=== PATIENT | female | born 1990 | race Caucasian/White ===

== ENCOUNTER 2017-10-24 00:27 | Inpatient (IN) | payer BC ==
[2017-10-24] MEDS ORDERED: Sodium Chloride 0.9% 10 ML Syringe FLUSH PRN (01:08)
[2017-10-24] MEDS ORDERED: Tranexamic Acid 1,000 MG in Sodium Chloride 0.9% 100 ML IV PRN (01:08)
[2017-10-24] MEDS ORDERED: Butorphanol 1 MG/ML SDV IVPUSH PRN (01:08)
[2017-10-24] MEDS ORDERED: Sodium Chloride 0.9% 2.5 ML Syringe FLUSH PRN (01:08)
[2017-10-24] MEDS ORDERED: Nalbuphine 10 MG/1 ML Vial IVPUSH PRN (01:08)
[2017-10-24] MEDS ORDERED: Carboprost Tromethamine 250 MCG/1 ML Amp IM PRN (01:08)
[2017-10-24] MEDS ORDERED: Water For Irrigation,Sterile 1,000 ML Container IRR PRN (01:08)
[2017-10-24] MEDS ORDERED: Methylergonovine 0.2 MG/1 ML Amp IM PRN ×2 (01:08→14:03)
[2017-10-24] MEDS ORDERED: Lidocaine 1% 50 ML MDV INJECT PRN (01:08)
[2017-10-24] MEDS ORDERED: Misoprostol 200 MCG Tab PO PRN (01:08)
[2017-10-24] MEDS ORDERED: Terbutaline 1 MG/ML SDV SUBCUT PRN (01:10)
[2017-10-24] MEDS ORDERED: Oxytocin/0.9 % Sodium Chloride 30 UNIT/500 ML BAG IV SCH (01:15)
[2017-10-24] MEDS: Lactated Ringers 1,000 ML IV SCH ×3 (01:32→11:07)
[2017-10-24] MEDS ORDERED: Ampicillin 2 GM in Sodium Chloride 0.9% 100 ML IV ONE (01:38)
[2017-10-24] MEDS: Ampicillin 1 GM in Sodium Chloride 0.9% 50 ML IV SCH ×2 (06:28→10:33)
[2017-10-24] MEDS ORDERED: fentaNYL 100 MCG/2 ML SDV ONE (07:46)
[2017-10-24] MEDS ORDERED: Nalbuphine 10 MG/ML 10 ML MDV IVPUSH PRN (08:15)
--- NOTE | 2017-10-24 10:10 | PCM.PREANE ---
Preanesthetic Assessment - Procedure Proposed Procedure: labor epidural - Anesthesia/Transfusion/Family Hx Anesthesia History: Prior Anesthesia Without Reaction Intubation History: Unknown - Review of Systems General: Other (pregnacy with active labor; no prior regional with childbirths) Pulmonary: Other (asthma hx) Cardiovascular: No Symptoms Gastrointestinal: Other (GERD) Neurological: No Symptoms Other: Reports: Anxiety - Physical Assessment NPO Status Date: 10/23/17 NPO Status Time: 23:00 Height: 6 ft Weight: 230 lb ASA Class: 2 Mental Status: Alert & Oriented x3 Airway Class: Mallampati = 1 Dentition: Reports: Normal Dentition Thyro-Mental Finger Breadths: 3 Mouth Opening Finger Breadths: 3 ROM/Head Extension: Full Lungs: Clear to Auscultation, Normal Respiratory Effort Cardiovascular: Regular Rate, Regular Rhythm, No Murmurs - Lab Values: Laboratory Last Values WBC 8.34 K/uL (4.0-11.0) 10/24/17 01:30 RBC 3.81 M/uL (4.30-5.90) L 10/24/17 01:30 Hgb 10.0 g/dL (12.0-16.0) L 10/24/17 01:30 Hct 31.6 % (36.0-46.0) L 10/24/17 01:30 MCV 82.9 fL (80.0-98.0) 10/24/17 01:30 MCH 26.2 pg (27.0-32.0) L 10/24/17 01:30 MCHC 31.6 g/dL (31.0-37.0) 10/24/17 01:30 RDW Std Deviation 45.7 fl (28.0-62.0) 10/24/17 01:30 RDW Coeff of Moy 15 % (11.0-15.0) 10/24/17 01:30 Plt Count 157 K/uL (150-400) 10/24/17 01:30 MPV 9.80 fL (7.40-12.00) 10/24/17 01:30 Nucleated RBC % 0.4 /100WBC 10/24/17 01:30 Nucleated RBCs # 0 K/uL 10/24/17 01:30 Blood Type A POSITIVE 10/24/17 01:30 Antibody Screen NEGATIVE 10/24/17 01:30 - Allergies Allergies/Adverse Reactions: Allergies Allergy/AdvReac Type Severity Reaction Status Date / Time aluminum aspirin Allergy Other Verified 10/18/14 09:16 - Blood Blood Available: No Product(s) Available: None - Acknowledgements Anesthesia Type Planned: Epidural Pt an Appropriate Candidate for the Planned Anesthesia: Yes Alternatives and Risks of Anesthesia Discussed w Pt/Guardian: Yes Pt/Guardian Understands and Agrees with Anesthesia Plan: Yes Additional Comments: present for interview, exam and epidural placement PreAnesthesia Questionnaire Respiratory History: Reports: Asthma 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: Psychiatric History: Reports: Anxiety - Past Surgical History HEENT Surgical History: Reports: Other (See Below) Other HEENT Surgeries/Procedures: wisdom teeth 2006 Respiratory Surgical History: Reports: None - SUBSTANCE USE Smoking Status *Q: Never Smoker Tobacco Use Within Last Twelve Months: No Second Hand Smoke Exposure: No Recreational Drug Use History: No - HOME MEDS Home Medications: Home Meds Citalopram [Citalopram HBr] 20 mg PO DAILY #30 tablet 10/19/14 [Rx] - CURRENT (IN HOUSE) MEDS Current Meds: Current Medications Butorphanol Tartrate (Stadol) 1 mg IVPUSH Q1H PRN PRN Reason: Pain Carboprost Tromethamine (Hemabate Ds) 250 mcg IM ASDIRECTED PRN PRN Reason: Post Hemorrhage Lactated Ringer's (Ringers, Lactated) 1,000 mls @ 150 mls/hr IV ASDIRECTED [facility] Last Admin: 10/24/17 08:21 Dose: 150 mls/hr Tranexamic Acid 1,000 mg/ (Sodium Chloride) 110 mls @ 660 mls/hr IV ONETIME PRN PRN Reason: Bleeding Oxytocin/Sodium Chloride (Oxytocin 30 Unit/500 Ml-Ns) 30 unit in 500 mls @ 2 mls/hr IV TITRATE [facility]; Protocol Last Titration: 10/24/17 09:23 Dose: 12 munits/min, 12 mls/hr Ampicillin Sodium 1 gm/ Sodium (Chloride) 50 mls @ 100 mls/hr IV Q4H [facility] Last Admin: 10/24/17 06:28 Dose: 100 mls/hr Lidocaine HCl (Xylocaine 1%) 50 ml INJECT .ONCE PRN PRN Reason: Laceration repair Methylergonovine Maleate (Methergine) 0.2 mg IM ASDIRECTED PRN PRN Reason: Post Hemorrhage Misoprostol (Cytotec) 200 mcg PO .ONCE PRN PRN Reason: Post Hemorrhage Nalbuphine HCl (Nubain) 10 mg IVPUSH Q1H PRN PRN Reason: Pain (severe 7-10) Sodium Chloride (Saline Flush) 10 ml FLUSH ASDIRECTED PRN PRN Reason: Keep Vein Open Sodium Chloride (Saline Flush) 2.5 ml FLUSH ASDIRECTED PRN PRN Reason: Keep Vein Open Sterile Water (Sterile Water For Irrigation) 1,000 ml IRR ASDIRECTED PRN PRN Reason: delivery Terbutaline Sulfate (Brethine) 0.25 mg SUBCUT ASDIRECTED PRN PRN Reason: Tacysystole Discontinued Medications Fentanyl (Sublimaze) Confirm Administered Dose 100 mcg .ROUTE .STK-MED ONE Stop: 10/24/17 07:47 Ampicillin Sodium 2 gm/ Sodium (Chloride) 100 mls @ 200 mls/hr IV ONETIME ONE Stop: 10/24/17 02:07 Last Admin: 10/24/17 01:52 Dose: 200 mls/hr Fentanyl/Bupivacaine HCl (Eualvuqa-Nbxva-Xl 2 Mcg/Ml-0.125%) Confirm Administered Dose 100 mls @ as directed EP .STK-MED ONE Stop: 10/24/17 07:48 Nalbuphine HCl (Nubain) 10 mg IVPUSH Q1H PRN PRN Reason: Pain (severe 7-10)
[2017-10-24] MEDS ORDERED: Lanolin 100% Cream 7 GM Tube TOP PRN (14:03)
[2017-10-24] MEDS ORDERED: Ibuprofen 800 MG Tab PO PRN (14:03)
[2017-10-24] MEDS ORDERED: Witch Hazel Medicated Pads 40/Jar TOP PRN (14:03)
[2017-10-24] MEDS ORDERED: Docusate Sodium 100 MG Cap PO PRN (14:03)
[2017-10-24] MEDS ORDERED: Acetaminophen 500 MG Tab PO PRN ×2 (14:03)
[2017-10-24] MEDS ORDERED: Benzocaine/Menthol 20%-0.5% Spray 78 GM Cannister TOP PRN (14:03)
[2017-10-24] MEDS ORDERED: Bisacodyl 10 MG Supp RECTAL PRN (14:03)
[2017-10-24] MEDS ORDERED: Ibuprofen 400 MG Tab PO PRN (14:03)
[2017-10-24] MEDS ORDERED: oxyCODONE 5 MG Tab PO PRN (14:03)
[2017-10-24] MEDS ORDERED: Oxytocin/0.9 % Sodium Chloride 30 UNIT/500 ML BAG ONE (14:05)
[2017-10-24] MEDS ORDERED: ceFAZolin 2 GM in Premix Bag 1 BAG IV SCH (14:15)
--- NOTE | 2017-10-24 15:05 | OR ---
SURGEON: Darcy Barrios M.D. DATE OF PROCEDURE: PREOPERATIVE DIAGNOSES: 1. A 39 and 1/7 week intrauterine . 2. Polyhydramnios. 3. Suspected macrosomia. 4. Group B strep positive. POSTOPERATIVE DIAGNOSES: 1. A 39 and 1/7 week intrauterine . 2. Polyhydramnios. 3. Suspected macrosomia. 4. Group B strep positive. 5. Retained placenta. 6. Hydrocele of . PROCEDURE: Pitocin induction of labor, term spontaneous vaginal delivery. ANESTHESIA: Epidural. ESTIMATED BLOOD LOSS: Less than 300 mL. FINDINGS: Live-born male, scores 9 and 9, weighing 4240 g. Placenta was delivered Dahl with retained membranes, 3 vessel cord. The had a right hydrocele, left testis was descended. COMPLICATIONS: None known. DISPOSITION: Stable to recovery. BRIEF HISTORY: This is a 27-year-old female she is G4, P3. She has been diagnosed with polyhydramnios and macrosomia based on ultrasound findings. She was offered delivery versus induction of labor without any vaginal assistance with vacuum or forceps. Understanding the risks of shoulder dystocia, she does desire to proceed with induction of labor. She presented to labor and delivery 4-5 cm dilated, 80% effaced, -4 station. Pitocin was initiated. She received 2 doses of ampicillin for group B strep prophylaxis. At this time, she was 5 cm dilated. The head was well applied to the cervix, still -3 station. Artificial rupture of membranes was performed, clear fluid was noted. She then received an epidural for pain control. She continued to have category 1 heart tones throughout labor. When she was approximately 8 cm dilated, she was still at a -3 station. I did have her try to do a Valsalva maneuver. With several contractions, the head did descend into the pelvis, therefore an IUPC was placed. Pitocin was continued and over the next 45 minutes, she did progress to complete. DESCRIPTION OF PROCEDURE: With the patient in dorsal lithotomy position, under adequate epidural analgesia, the patient pushed over 1 contraction to a 5+ station, at which time, Brendan maneuver was performed as well as suprapubic pressure and the patient was placed in the supine position. With this, the anterior and posterior shoulders were delivered without any difficulty with subsequent delivery of the infant's body. The infant was bulb suctioned by nose and mouth. The cord was clamped x2 and cut after it ceased to pulsate and the was handed to the mother in the presence of the nurse attending delivery. The was a liveborn male, scores 9 and 9, weighing 4240 g with a finding of a right hydrocele. Cord blood was collected for cord ABGs as well as routine cord blood sampling. As this process was occurring, there was a large amount of bleeding noted, therefore fundal massage was performed and the vaginal hand was used to palpate the placenta, which was in the vagina in a Dahl presentation. Continued fundal massage was performed with delivery of the placenta with trailing membranes. The membranes were twisted with continued fundal massage to assist with delivery of the membranes; however, they did not deliver intact. Therefore, manual curettage was performed removing the remainder of the membranes. Once this was completed, there was minimal bleeding. The uterus was firm. The placenta and membrane fragments were then sent to Pathology. Upon inspection of the pelvis and perineum, there were no periurethral, vaginal sidewall, cervical, rectal, or perineal lacerations. EBL was less than 300 mL. There were no known complications. Mother and baby are in LDRP in good condition and Dr. Queen has evaluated the hydrocele. The patient will be continued on Ancef for 24 hours due to the manual extraction of the placental membranes. MELIZA FORDE /[id number]
--- NOTE | 2017-10-24 17:33 | PCM.PNPP ---
- General Info Date of Service: 10/24/17 Admission Dx/Problem (Free Text): day 0, baby is being transferred to [place] for repair of bilateral congenital hernias, she would like to be discharged today, lochia is small, she is afebrile, denies pain. Functional Status: Reports: Pain Controlled, Tolerating Diet. Denies: Ambulating (left leg is still ), Urinating - Review of Systems General: Reports: No Symptoms HEENT: Reports: No Symptoms Pulmonary: Reports: No Symptoms Cardiovascular: Reports: No Symptoms Gastrointestinal: Reports: No Symptoms Genitourinary: Reports: No Symptoms Musculoskeletal: Reports: No Symptoms Skin: Reports: No Symptoms Neurological: Reports: No Symptoms Psychiatric: Reports: No Symptoms - Patient Data Weight - Most Recent: 104.326 kg Lab Results - Last 24 Hours: Laboratory Results - last 24 hr 10/24/17 10/24/17 Range/Units 01:30 01:30 WBC 8.34 (4.0-11.0) K/uL RBC 3.81 L (4.30-5.90) M/uL Hgb 10.0 L (12.0-16.0) g/dL Hct 31.6 L (36.0-46.0) % MCV 82.9 (80.0-98.0) fL MCH 26.2 L (27.0-32.0) pg MCHC 31.6 (31.0-37.0) g/dL RDW Std Deviation 45.7 (28.0-62.0) fl RDW Coeff of Moy 15 (11.0-15.0) % Plt Count 157 (150-400) K/uL MPV 9.80 (7.40-12.00) fL Nucleated RBC % 0.4 /100WBC Nucleated RBCs # 0 K/uL Blood Type A POSITIVE Antibody Screen NEGATIVE Med Orders - Current: Current Medications Acetaminophen (Tylenol Extra Strength) 500 mg PO Q4H PRN PRN Reason: Pain Acetaminophen (Tylenol Extra Strength) 1,000 mg PO Q4H PRN PRN Reason: Pain Benzocaine/Menthol (Dermoplast Pain Relief 20%-0.5% Lovely) 78 gm TOP ASDIRECTED PRN PRN Reason: Perineal Comfort Measure Last Admin: 10/24/17 16:01 Dose: 1 applic Bisacodyl (Dulcolax) 10 mg RECTAL .ONCE PRN PRN Reason: Constipation Docusate Sodium (Colace) 100 mg PO BID PRN PRN Reason: Constipation Emollient Ointment (Lansinoh Hpa) 0 gm TOP ASDIRECTED PRN PRN Reason: Sore Nipples Last Admin: 10/24/17 16:01 Dose: 1 applic Cefazolin Sodium/Dextrose 2 gm (/ Premix) 50 mls @ 100 mls/hr IV Q8H [facility] Stop: 10/25/17 14:44 Last Admin: 10/24/17 14:56 Dose: 100 mls/hr Ibuprofen (Motrin) 400 mg PO Q4H PRN PRN Reason: Pain Ibuprofen (Motrin) 800 mg PO Q6H PRN PRN Reason: Pain Last Admin: 10/24/17 16:02 Dose: 800 mg Methylergonovine Maleate (Methergine) 0.2 mg IM .ONCE PRN PRN Reason: Excessive Vaginal Bleeding Oxycodone HCl (Oxycodone) 5 mg PO Q2H PRN PRN Reason: Pain Witch Evon (Tucks) 1 pad TOP ASDIRECTED PRN PRN Reason: comfort care Discontinued Medications Butorphanol Tartrate (Stadol) 1 mg IVPUSH Q1H PRN PRN Reason: Pain Carboprost Tromethamine (Hemabate Ds) 250 mcg IM ASDIRECTED PRN PRN Reason: Post Hemorrhage Fentanyl (Sublimaze) Confirm Administered Dose 100 mcg .ROUTE .STK-MED ONE Stop: 10/24/17 07:47 Lactated Ringer's (Ringers, Lactated) 1,000 mls @ 150 mls/hr IV ASDIRECTED [facility] Last Admin: 10/24/17 11:07 Dose: 150 mls/hr Tranexamic Acid 1,000 mg/ (Sodium Chloride) 110 mls @ 660 mls/hr IV ONETIME PRN PRN Reason: Bleeding Oxytocin/Sodium Chloride (Oxytocin 30 Unit/500 Ml-Ns) 30 unit in 500 mls @ 2 mls/hr IV TITRATE [facility]; Protocol Last Titration: 10/24/17 12:47 Dose: 20 munits/min, 20 mls/hr Ampicillin Sodium 2 gm/ Sodium (Chloride) 100 mls @ 200 mls/hr IV ONETIME ONE Stop: 10/24/17 02:07 Last Admin: 10/24/17 01:52 Dose: 200 mls/hr Ampicillin Sodium 1 gm/ Sodium (Chloride) 50 mls @ 100 mls/hr IV Q4H [facility] Last Admin: 10/24/17 10:33 Dose: 100 mls/hr Fentanyl/Bupivacaine HCl (Rqlnkggt-Tymgz-Rl 2 Mcg/Ml-0.125%) Confirm Administered Dose 100 mls @ as directed EP .STK-MED ONE Stop: 10/24/17 07:48 Oxytocin/Sodium Chloride (Oxytocin 30 Unit/500 Ml-Ns) Confirm Administered Dose 30 unit in 500 mls @ as directed .ROUTE .STK-MED ONE Stop: 10/24/17 14:06 Last Admin: 10/24/17 14:13 Dose: Not Given Lidocaine HCl (Xylocaine 1%) 50 ml INJECT .ONCE PRN PRN Reason: Laceration repair Methylergonovine Maleate (Methergine) 0.2 mg IM ASDIRECTED PRN PRN Reason: Post Hemorrhage Misoprostol (Cytotec) 200 mcg PO .ONCE PRN PRN Reason: Post Hemorrhage Nalbuphine HCl (Nubain) 10 mg IVPUSH Q1H PRN PRN Reason: Pain (severe 7-10) Nalbuphine HCl (Nubain) 10 mg IVPUSH Q1H PRN PRN Reason: Pain (severe 7-10) Sodium Chloride (Saline Flush) 10 ml FLUSH ASDIRECTED PRN PRN Reason: Keep Vein Open Sodium Chloride (Saline Flush) 2.5 ml FLUSH ASDIRECTED PRN PRN Reason: Keep Vein Open Sterile Water (Sterile Water For Irrigation) 1,000 ml IRR ASDIRECTED PRN PRN Reason: delivery Last Admin: 10/24/17 14:16 Dose: 1,000 ml Terbutaline Sulfate (Brethine) 0.25 mg SUBCUT ASDIRECTED PRN PRN Reason: Tacysystole - Interaction Disposition, : [place] in Room with Family Feeding: Breastfed Infant; Nursed Well (now cannot breastfeed as baby is NPO) Support Person: - Recovery Exam Fundal Tone: Firm Fundal Level: 1 Fingerbreadths Below Umbilicus Fundal Placement: Midline Lochia Amount: Moderate Lochia Color: Rubra/Red Episiotomy/Laceration: None Bladder Status: Palpable - Exam General: Alert, Oriented HEENT: Pupils Equal Neck: Supple Lungs: Normal Respiratory Effort Cardiovascular: Regular Rhythm GI/Abdominal Exam: Soft, Non-Tender, No Organomegaly, No Distention, No Mass Extremities: No Pedal Edema Skin: Warm, Dry, Intact Neurological: No New Focal Deficit Psy/Mental Status: Alert, Normal Affect, Normal Mood - Problem List Review Problem List Initiated/Reviewed/Updated: Yes - My Orders Last 24 Hours: My Active Orders 10/24/17 14:03 Acetaminophen [Tylenol Extra Strength] 1,000 mg PO Q4H PRN Acetaminophen [Tylenol Extra Strength] 500 mg PO Q4H PRN Benzocaine/Menthol [Dermoplast Pain Relief 20%-0.5% Lovely] 78 gm TOP ASDIRECTED PRN Bisacodyl [Dulcolax] 10 mg RECTAL .ONCE PRN Docusate Sodium [Colace] 100 mg PO BID PRN Ibuprofen [Motrin] 400 mg PO Q4H PRN Ibuprofen [Motrin] 800 mg PO Q6H PRN Lanolin [Lansinoh HPA] See Dose Instructions TOP ASDIRECTED PRN Methylergonovine [Methergine] 0.2 mg IM .ONCE PRN Witch Evon [Tucks] 1 pad TOP ASDIRECTED PRN oxyCODONE 5 mg PO Q2H PRN Resuscitation Status Routine 10/24/17 14:04 Patient Status [ADT] Routine May Shower [RC] ASDIRECTED Up ad Damaris [RC] ASDIRECTED Vital Signs [RC] PER UNIT ROUTINE Assess Lochia [WOMSER] Per Unit Routine Assess Uterine Involution [WOMSER] Per Unit Routine Perineal Care [OM.PC] Per Unit Routine Peripheral IV Discontinue [OM.PC] Routine 10/24/17 14:15 ceFAZolin [Ancef] 2 gm Premix Bag 1 bag IV Q8H 10/24/17 Lunch Regular Diet [DIET] 10/25/17 05:11 HEMOGLOBIN/HEMATOCRIT,HH [HEME] Timed - Assessment Assessment:: PPD 0 after of baby with bilateral congenital hernias, baby is being transferred for possible pediatric surgeon. She has breastfed once. She would like to be discharged today. She has not yet voided and left leg is still a little weak from the epidural. She has minimal pain, moderate lochia - Plan Plan:: After patient is able to void, and confirm that strength is back from epidural, she may be discharged. She will continue on oral antibiotics, due to manual removal of placental membranes. She will continue on prenatals while , discharge precautions and travel precautions reviewed.
--- NOTE | 2017-10-24 21:38 | PCM48HPAN ---
Post Anesthesia Note - EVALUATION WITHIN 48HRS OF ANESTHETIC Vital Signs in Normal Range: Yes Patient Participated in Evaluation: Yes Respiratory Function Stable: Yes Airway Patent: Yes Cardiovascular Function Stable: Yes Hydration Status Stable: Yes Pain Control Satisfactory: Yes Nausea and Vomiting Control Satisfactory: Yes Mental Status Recovered: Yes - COMMENTS/OBSERVATIONS Free Text/Narrative:: Evaluation is based upon obstetrition note and nurses report. Epidural catheter was removed intact after delivery. Patient was discharged to be with baby who [facility] congenital her[facility](s).
== END 2017-10-24 18:50 | disposition home or self-care (01) | DRG 560 ==
LOC: MW.OBCHECK 00:27 → MW.OB 00:28 → MW.OBCHECK 01:08 → OBSVTOIN 13:24
PROVIDERS: ADMIT Obstetrics & Gynecology; ATTEND Obstetrics & Gynecology
PROC: 10E0XZZ Delivery of Products of Conception, External Approach (ICD-10-PCS; principal; 2017-10-24)
PROC: 3E033VJ Introduction of Other Hormone into Peripheral Vein, Percutaneous Approach (ICD-10-PCS; 2017-10-24)
PROC: 10907ZC Drainage of Amniotic Fluid, Therapeutic from Products of Conception, Via Natural or Artificial Opening (ICD-10-PCS; 2017-10-24)
DX: O40.3XX0 Polyhydramnios, third trimester, not applicable or unspecified (principal); Z3A.39 39 weeks gestation of pregnancy; Z37.0 Single live birth; O36.63X0 Maternal care for excessive fetal growth, third trimester, not applicable or unspecified; O99.824 Streptococcus B carrier state complicating childbirth; O73.0 Retained placenta without hemorrhage
CPT/HCPCS: 36415; 51702; 59025; 59409; 82803; 85027; 86850; 86900; 86901; A9270-GY; J0290; J0690; J2590; J7030; J7050; J7120

== ENCOUNTER 2018-11-27 18:15 | Emergency (ER) | payer BC ==
--- NOTE | 2018-11-27 18:45 | EDM.PDOC ---
ED HPI GENERAL MEDICAL PROBLEM - General Chief Complaint: Headache Stated Complaint: HEADACHE Time Seen by Provider: 11/27/18 18:15 Source of Information: Reports: Patient History Limitations: Reports: No Limitations - History of Present Illness INITIAL COMMENTS - FREE TEXT/NARRATIVE: HISTORY AND PHYSICAL: History of present illness: Patient is a 28-year-old female who presents today with a headache that began at noon today. Patient describes the headache like a band around her head. She took ibuprofen with mild relief. This afternoon she started getting a sore throat, and generalized body aches. Patient denies any injury or recent illnesses. Patient states she is concerned as she does not have a history of headaches. Patient denies any other symptoms or concerns at this time. Patient denies any health history. Patient denies fever, chest pain, shortness of breath, or cough. Denies headache , neck stiff ness, change in vision, syncope, or near syncope. Denies nausea, vomiting, abdominal pain, diarrhea, constipation, or dysuria. Has not noted any blood in urine or stool. Patient has been eating and drinking appropriately. Review of systems: As per history of present illness and below otherwise all systems reviewed and negative. Past medical history: As per history of present illness and as reviewed below otherwise noncontributory. Surgical history: As per history of present illness and as reviewed below otherwise noncontributory. Social history: See social history for further information Family history: As per history of present illness and as reviewed below otherwise noncontributory. Physical exam: General: Patient is alert, oriented, and in no acute distress. Patient laying comfortably on exam table. HEENT: Atraumatic, normocephalic, pupils equal and reactive bilaterally, negative for conjunctival pallor or scleral icterus, mucous membranes moist, TMs normal bilaterally, throat is moderately erythematous without exudate, neck supple, nontender, trachea midline. No drooling or trismus noted. No meningeal signs. No hot potato voice noted. Lungs: Clear to auscultation, breath sounds equal bilaterally, chest nontender. Heart: S1S2, regular rate and rhythm without overt murmur Abdomen: Soft, nondistended, nontender. Negative for masses or hepatosplenomegaly. Negative for costovertebral tenderness. Pelvis: Stable nontender. Genitourinary: Deferred. Rectal: Deferred. Skin: Intact, warm, dry. No lesions or rashes noted. Extremities: Atraumatic, negative for cords or calf pain. Neurovascular unremarkable. Negative Kernig and Brudzinski sign. Neuro: Awake, alert, oriented. Cranial nerves II through XII unremarkable. Cerebellum unremarkable. Motor and sensory unremarkable throughout. Exam nonfocal. Notes: Discussed the importance of following up with PCP. Voices understanding and is agreeable to plan of care. Denies any further questions or concerns at this time. Diagnostics: Strep, mono, CBC, CMP, UA, head CT, urine hCG, CPK, influenza Therapeutics: None Prescription: Amoxicillin Impression: Strep pharyngitis Plan: 1. Take medication as prescribed. Continue to alternate ibuprofen and Tylenol as directed for pain and discomfort. 2. Follow-up with your primary care provider as discussed. Return to the ED as needed and as discussed. Definitive disposition and diagnosis as appropriate pending reevaluation and review of above. headache Pain Score (Numeric/FACES): 7 - Related Data Allergies Allergy/AdvReac Type Severity Reaction Status Date / Time aluminum aspirin Allergy Other Verified 11/27/18 18:20 Home Meds: Home Meds Citalopram [Citalopram HBr] 20 mg PO DAILY #30 tablet 10/19/14 [Rx] Past Medical History HEENT History: Reports: None Cardiovascular History: Reports: None Respiratory History: Reports: None Gastrointestinal History: Reports: None Genitourinary History: Reports: None [employer] History: Reports: Musculoskeletal History: Reports: None Neurological History: Reports: None Psychiatric History: Reports: Anxiety Endocrine/Metabolic History: Reports: None Hematologic History: Reports: None Immunologic History: Reports: None Oncologic (Cancer) History: Reports: None Dermatologic History: Reports: None - Infectious Disease History Infectious Disease History: Reports: None - Past Surgical History Head Surgeries/Procedures: Reports: None HEENT Surgical History: Reports: Oral Surgery, Other (See Below) Other HEENT Surgeries/Procedures: wisdom teeth 2006 Respiratory Surgical History: Reports: None Female Surgical History: Reports: None Musculoskeletal Surgical History: Reports: None Social & Family History - Family History Family Medical History: Noncontributory Endocrine/Metabolic: Reports: Hypothyroidism - Tobacco Use Smoking Status *Q: Never Smoker - Caffeine Use Caffeine Use: Reports: Soda - Recreational Drug Use Recreational Drug Use: No ED ROS GENERAL - Review of Systems Review Of Systems: ROS reveals no pertinent complaints other than HPI. ED EXAM, GENERAL - Physical Exam Exam: See Below (See dictation) Course - Vital Signs Last Recorded V/S: Last Vital Signs Temp 36.1 C 11/27/18 18:20 Pulse 82 11/27/18 18:20 Resp 18 11/27/18 18:20 BP 124/75 11/27/18 18:20 Pulse Ox 98 11/27/18 18:20 - Orders/Labs/Meds Labs: Laboratory Tests 11/27/18 11/27/18 11/27/18 Range/Units 18:48 18:48 18:59 WBC 12.12 H (4.0-11.0) K/uL RBC 4.48 (4.30-5.90) M/uL Hgb 13.5 (12.0-16.0) g/dL Hct 41.6 (36.0-46.0) % MCV 92.9 (80.0-98.0) fL MCH 30.1 (27.0-32.0) pg MCHC 32.5 (31.0-37.0) g/dL RDW Std Deviation 43.6 (28.0-62.0) fl RDW Coeff of Moy 13 (11.0-15.0) % Plt Count 169 (150-400) K/uL MPV 10.50 (7.40-12.00) fL Neut % (Auto) 84.1 H (48.0-80.0) % Lymph % (Auto) 9.1 L (16.0-40.0) % [place] % (Auto) 6.4 (0.0-15.0) % Eos % (Auto) 0.2 (0.0-7.0) % Baso % (Auto) 0.2 (0.0-1.5) % Neut # (Auto) 10.2 H (1.4-5.7) K/uL Lymph # (Auto) 1.1 (0.6-2.4) K/uL [place] # (Auto) 0.8 (0.0-0.8) K/uL Eos # (Auto) 0.0 (0.0-0.7) K/uL Baso # (Auto) 0.0 (0.0-0.1) K/uL Nucleated RBC % 0.0 /100WBC Nucleated RBCs # 0 K/uL Sodium (136-145) mmol/L Potassium (3.5-5.1) mmol/L Chloride (98-107) mmol/L Carbon Dioxide (21.0-32.0) mmol/L BUN (7.0-18.0) mg/dL Creatinine (0.6-1.0) mg/dL Est Cr Clr Drug Dosing mL/min Estimated GFR (MDRD) ml/min Glucose (74-106) mg/dL Calcium (8.5-10.1) mg/dL Total Bilirubin (0.2-1.0) mg/dL AST (15-37) IU/L ALT (14-63) IU/L Alkaline Phosphatase (46-116) U/L Creatine Kinase (26-308) U/L Total Protein (6.4-8.2) g/dL Albumin (3.4-5.0) g/dL Globulin (2.6-4.0) g/dL Albumin/Globulin Ratio (0.9-1.6) Urine Color YELLOW Urine Appearance CLEAR Urine pH 7.0 (5.0-8.0) Ur Specific [place] 1.020 (1.001-1.035) Urine Protein NEGATIVE (NEGATIVE) mg/dL Urine Glucose (UA) NEGATIVE (NEGATIVE) mg/dL Urine Ketones NEGATIVE (NEGATIVE) mg/dL Urine Occult Blood NEGATIVE (NEGATIVE) Urine Nitrite NEGATIVE (NEGATIVE) Urine Bilirubin NEGATIVE (NEGATIVE) Urine Urobilinogen 1.0 (<2.0) EU/dL Ur Leukocyte Esterase NEGATIVE (NEGATIVE) Urine HCG, Qual NEGATIVE (NEGATIVE) Monoscreen (NEG) 11/27/18 11/27/18 Range/Units 18:59 18:59 WBC (4.0-11.0) K/uL RBC (4.30-5.90) M/uL Hgb (12.0-16.0) g/dL Hct (36.0-46.0) % MCV (80.0-98.0) fL MCH (27.0-32.0) pg MCHC (31.0-37.0) g/dL RDW Std Deviation (28.0-62.0) fl RDW Coeff of Moy (11.0-15.0) % Plt Count (150-400) K/uL MPV (7.40-12.00) fL Neut % (Auto) (48.0-80.0) % Lymph % (Auto) (16.0-40.0) % [place] % (Auto) (0.0-15.0) % Eos % (Auto) (0.0-7.0) % Baso % (Auto) (0.0-1.5) % Neut # (Auto) (1.4-5.7) K/uL Lymph # (Auto) (0.6-2.4) K/uL [place] # (Auto) (0.0-0.8) K/uL Eos # (Auto) (0.0-0.7) K/uL Baso # (Auto) (0.0-0.1) K/uL Nucleated RBC % /100WBC Nucleated RBCs # K/uL Sodium 133 L (136-145) mmol/L Potassium 3.7 (3.5-5.1) mmol/L Chloride 100 (98-107) mmol/L Carbon Dioxide 28.1 (21.0-32.0) mmol/L BUN 17 (7.0-18.0) mg/dL Creatinine 0.9 (0.6-1.0) mg/dL Est Cr Clr Drug Dosing 106.43 mL/min Estimated GFR (MDRD) > 60.0 ml/min Glucose 105 (74-106) mg/dL Calcium 8.5 (8.5-10.1) mg/dL Total Bilirubin 0.2 (0.2-1.0) mg/dL AST 16 (15-37) IU/L ALT 17 (14-63) IU/L Alkaline Phosphatase 66 (46-116) U/L Creatine Kinase 144 (26-308) U/L Total Protein 7.8 (6.4-8.2) g/dL Albumin 3.8 (3.4-5.0) g/dL Globulin 4.0 (2.6-4.0) g/dL Albumin/Globulin Ratio 0.9 (0.9-1.6) Urine Color Urine Appearance Urine pH (5.0-8.0) Ur Specific [place] (1.001-1.035) Urine Protein (NEGATIVE) mg/dL Urine Glucose (UA) (NEGATIVE) mg/dL Urine Ketones (NEGATIVE) mg/dL Urine Occult Blood (NEGATIVE) Urine Nitrite (NEGATIVE) Urine Bilirubin (NEGATIVE) Urine Urobilinogen (<2.0) EU/dL Ur Leukocyte Esterase (NEGATIVE) Urine HCG, Qual (NEGATIVE) Monoscreen NEGATIVE (NEG) Departure - Departure Time of Disposition: 20:16 Disposition: Home, Self-Care 01 Clinical Impression: Strep pharyngitis - Discharge Information Referrals: Mirella Gomez MD [Primary Care Provider] - Forms: ED Department Discharge Additional Instructions: The following information is given to patients seen in the emergency department who are being discharged to home. This information is to outline your options for follow-up care. We provide all patients seen in our emergency department with a follow-up referral. The need for follow-up, as well as the timing and circumstances, are variable depending upon the specifics of your emergency department visit. If you don't have a primary care physician on staff, we will provide you with a referral. We always advise you to contact your personal physician following an emergency department visit to inform them of the circumstance of the visit and for follow-up with them and/or the need for any referrals to a consulting specialist. The emergency department will also refer you to a specialist when appropriate. This referral assures that you have the opportunity for follow-up care with a specialist. All of these measure are taken in an effort to provide you with optimal care, which includes your follow-up. Under all circumstances we always encourage you to contact your private physician who remains a resource for coordinating your care. When calling for follow-up care, please make the office aware that this follow-up is from your recent emergency room visit. If for any reason you are refused follow-up, please contact the [facility] Emergency Department at and asked to speak to the emergency department charge nurse. [facility] [address] [place] [id number] [facility] [address] [place] [id number] 1. Take medication as prescribed. Continue to alternate ibuprofen and Tylenol as directed for pain and discomfort. 2. Follow-up with your primary care provider as discussed. Return to the ED as needed and as discussed.
[2018-11-27 19:28] LABS: CHLORIDE,CL 100 mmol/L (98-107); SODIUM,NA 133 mmol/L (136-145)
--- NOTE | 2018-11-27 20:05 | CT ---
INDICATION: Headache; neck pain; shoulder and neck stiffness . Comparison: None. Technique: CT head without intravenous contrast; coronal and sagittal reformats. FINDINGS: No evidence of intracranial hemorrhage. No mass lesions. No evidence of shift of the midline structures. The calvarium is unremarkable. The ventricular system, the subarachnoid cisterns and the cerebral sulci are unremarkable. IMPRESSION: Negative unenhanced head CT. Please note that all CT scans at this facility use dose modulation, iterative reconstruction, and/or weight-based dosing when appropriate to reduce radiation dose to as low as reasonably achievable. Dictated by Zoey Aj MD @ Nov 27 2018 8:01PM Signed by Dr. Zoey Aj @ Nov 27 2018 8:04PM
[2018-11-27 20:17] VITALS: BP 122/68
== END 2018-11-27 18:28 | disposition home or self-care (01) ==
LOC: MW.ED 18:15
DX: J02.0 Streptococcal pharyngitis (principal); F41.9 Anxiety disorder, unspecified; Z79.899 Other long term (current) drug therapy; Z98.890 Other specified postprocedural states
CPT/HCPCS: 36415; 70450; 70450-26; 80053; 81003; 81025; 82550; 85025; 86308; 87804; 87880-QW; 99283; 99284-25

== ENCOUNTER 2023-08-20 09:53 | Day surgery (SDC) | payer OTHER ==
[2023-08-20] MEDS: Morphine 4 MG/ML Syringe IVPUSH ONE ×2 (10:30→13:18)
[2023-08-20] MEDS: Ondansetron 4 MG/2 ML SDV IVPUSH ONE (10:31)
[2023-08-20] MEDS: Sodium Chloride 0.9% 1,000 ML IV ONE (10:31)
[2023-08-20 10:49] LABS: BASOPHILS ABSOLUTE AUTO 0.03 K/uL (0.00-0.20); BASOPHILS PERCENT AUTO 0.2 % (0.0-1.0); EOSINOPHILS ABSOLUTE AUTO 0.02 K/uL (0.00-0.45); EOSINOPHILS PERCENT AUTO 0.2 % (0.0-6.0); HEMOGLOBIN 12.4 g/dL (12.0-16.0); IMMATURE GRAN ABSOLUTE AUTO 0.09 K/uL (0.00-0.05); IMMATURE GRAN PERCENT AUTO 0.7 % (0.0-0.4); LYMPHOCYTES ABSOLUTE AUTO 0.77 K/uL (1.00-4.80); LYMPHOCYTES PERCENT AUTO 5.8 % (24.0-44.0); MEAN CORPUSCULAR HEMOGLOBIN 31.6 pg (28.0-32.0); MEAN CORPUSCULAR HGB CONC 34.4 g/dL (32.0-36.0); MEAN CORPUSCULAR VOLUME 91.6 fL (83.0-99.0); MEAN PLATELET VOLUME 9.7 fL (9.4-12.3); MONOCYTES ABSOLUTE AUTO 0.84 K/uL (0.00-0.80); MONOCYTES PERCENT AUTO 6.4 % (0.0-8.0); NEUTROPHILS ABSOLUTE AUTO 11.45 K/uL (1.80-7.70); NEUTROPHILS PERCENT AUTO 86.7 % (41.0-71.0); PLATELET COUNT,PLT 184 K/uL (150-400); RED BLOOD CELL COUNT 3.93 M/uL (4.10-5.30)
[2023-08-20 10:58] LABS: A/G RATIO 0.8 (0.9-1.6); ALBUMIN 3.2 g/dL (3.4-5.0); BILIRUBIN TOTAL 0.4 mg/dL (0.2-1.0); CALCIUM 8.6 mg/dL (8.5-10.1); CREATININE 0.9 mg/dL (0.6-1.0); EST CRCL DRUG DOSING (CG) 101.64 mL/min; POTASSIUM,K 3.8 mmol/L (3.5-5.1); PROTEIN TOTAL,TP 7.3 g/dL (6.4-8.2)
[2023-08-20 13:00] LABS: APPEARANCE,URINE CLEAR; BILIRUBIN,URINE NEGATIVE (NEGATIVE); COLOR,URINE YELLOW; GLUCOSE,URINE NEGATIVE (NEGATIVE); KETONES,URINE 15 mg/dL (NEGATIVE); LEUKOCYTE ESTERASE,URINE NEGATIVE (NEGATIVE); NITRITE,URINE NEGATIVE (NEGATIVE); OCCULT BLOOD,URINE NEGATIVE (NEGATIVE); PROTEIN,URINE NEGATIVE (NEGATIVE); UROBILINOGEN,URINE 0.2 EU/dL (<2.0)
[2023-08-20] MEDS: Sodium Chloride 0.9% 1,000 ML IV SCH (13:19)
[2023-08-20] MEDS: Piperacillin/Tazobactam 4.5 GM in Sodium Chloride 0.9% 100 ML IV ONE (13:19)
[2023-08-20] MEDS ORDERED: propofoL 50 ML ONE ×2 (14:00→15:13)
[2023-08-20] MEDS ORDERED: fentaNYL 100 MCG/2 ML SDV ONE (14:00)
[2023-08-20] MEDS ORDERED: Propofol 200 MG/20 ML SDV ONE (14:00)
[2023-08-20] MEDS ORDERED: Water For Injection, Sterile 20 ML ONE (14:01)
[2023-08-20] MEDS ORDERED: dexmedeTOMIDine HCl 200 MCG/2 ML SDV ONE (14:01)
[2023-08-20] MEDS: Albuterol 0.083% 2.5 MG/3 ML Neb Soln NEB ONE (14:05)
[2023-08-20] MEDS: Famotidine 20 MG/2 ML SDV IVPUSH ONE (14:05)
[2023-08-20] MEDS ORDERED: Rocuronium Bromide 50 MG/5 ML Syringe ONE (14:06)
[2023-08-20] MEDS ORDERED: Ropivacaine 0.5% 5 MG/ML 30 ML SDV ONE (14:16)
[2023-08-20] MEDS ORDERED: Bupivacaine 0.25% 30 ML SDV ONE (14:16)
[2023-08-20] MEDS ORDERED: Bupivacaine 0.5% 30 ML SDV ONE (14:46)
[2023-08-20] MEDS ORDERED: Magnesium Sulfate (4.06 MEQ/ML) 5 GM/10 ML SDV ONE (14:57)
[2023-08-20] MEDS ORDERED: Dexamethasone 4 MG/ML 5 ML MDV ONE (15:19)
[2023-08-20] MEDS ORDERED: Ondansetron 4 MG/2 ML SDV ONE (15:19)
[2023-08-20] MEDS ORDERED: Sugammadex Sodium 200 MG/2 ML VIAL IV ONE (15:38)
[2023-08-20] MEDS ORDERED: Ketorolac 30 MG/ML SDV ONE (15:38)
[2023-08-20] MEDS ORDERED: Sodium Chloride 0.9% 20 ML SDV IV PRN (15:58)
[2023-08-20] MEDS ORDERED: diphenhydrAMINE 50 MG/ML SDV IVPUSH PRN (15:58)
[2023-08-20] MEDS ORDERED: Sodium Chloride 0.9% 2.5 ML Syringe FLUSH PRN (15:58)
[2023-08-20] MEDS ORDERED: Sodium Chloride 0.9% 10 ML Syringe FLUSH PRN (15:58)
[2023-08-20] MEDS ORDERED: HYDROmorphone 2 MG/ML Syringe IVPUSH PRN (15:58)
[2023-08-20] MEDS: Piperacillin/Tazobactam 4.5 GM in Sodium Chloride 0.9% 100 ML IV SCH (21:59)
[2023-08-20] MEDS: Acetaminophen/HYDROcodone 325-5 MG Tab PO PRN (22:02)
[2023-08-21 08:33] VITALS: BP 122/75; PULSE 77
== END 2023-08-21 11:15 | disposition home or self-care (01) ==
LOC: MW.ED 09:53 → MW.SDS 13:10 → MW.MS 15:59 → MW.SDS 08-21 11:15
PROVIDERS: ATTEND Surgery
DX: K35.33 Acute appendicitis with perforation, localized peritonitis, and gangrene, with abscess (principal); K83.8 Other specified diseases of biliary tract; Z79.890 Hormone replacement therapy; Z79.899 Other long term (current) drug therapy; Z98.890 Other specified postprocedural states; Z88.6 Allergy status to analgesic agent; Z88.8 Allergy status to other drugs, medicaments and biological substances
CPT/HCPCS: 36415; 44970; 64486; 74177; 80053; 81003; 83690; 84703; 85025; 96361; 96374; 96375; 96376; 99285; A9270; J0131; J0665; J1100; J1885; J2270; J2405; J2543; J2704; J2795; J3010; J3475; J3490; J7030; 00840; J7620-GY